=== PATIENT | male | born 1990 | race Caucasian/White ===

== ENCOUNTER 2018-01-31 06:13 | Emergency (ER) | payer BC ==
[2018-01-31 06:20] VITALS: BP 159/102; PULSE 87; RESP 18; TEMP 98.2
[2018-01-31] MEDS ORDERED: LIDOCAINE 1% INJ 10MG/ML (20 ML MDV) SQ ONE (06:30)
[2018-01-31] MEDS ORDERED: BUPIVACAINE (PF) 0.5% 30 ML VIAL SQ STA (06:30)
[2018-01-31] MEDS ORDERED: DIPH,PERTUS(ACELL)TETVAC-LF 0.5 ML VIAL IM ONE (06:35)
[2018-01-31] MEDS ORDERED: BUPIVACAINE (PF) 0.75% 10 ML VIAL SQ STA (06:37)
--- NOTE | 2018-01-31 06:39 | ED ---
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 Patient reports that last week he had a small superficial injury to the skin on his left thumb, patient was evaluated and prescribed Keflex which he reports he has been taking. Patient reports that over the past 2-3 days the swelling is become progressively worse and he has noticed the skin on the tip of his left thumb is become black. He reports he feels as though there is a water balloon a fluid within his thumb as well as worsening pain. - Related Data Home Medications Medication Instructions Recorded Confirmed Ibuprofen [Motrin Ib] 400 mg PO Q6H PRN 01/31/18 01/31/18 Allergies Allergy/AdvReac Type Severity Reaction Status Date / Time No Known Allergies Allergy Verified 01/31/18 07:38 Review of Systems ROS Statement: Those systems with pertinent positive or pertinent negative responses have been documented in the HPI. ROS Other: All systems not noted in ROS Statement are negative. Past Medical History Past Medical History: No Reported History History of Any Multi-Drug Resistant Organisms: None Reported Past Surgical History: No Surgical Hx Reported Past Psychological History: No Psychological Hx Reported Smoking Status: Never smoker Past Alcohol Use History: Occasional Past Drug Use History: None Reported General Exam - General Exam Comments Initial Comments: Physical Exam GENERAL: Patient is well-developed and well-nourished. Patient is nontoxic and well- hydrated and is in no distress. HENT: Normocephalic, Atraumatic. EYES: PERRL, EOMI PULMONARY: Unlabored respirations. No audible rales rhonchi or wheezing was noted. CARDIOVASCULAR: There is a regular rate and rhythm without any murmurs gallops or rubs. ABDOMEN: Soft and nontender with normal bowel sounds. SKIN: Left thumb erythematous, pad is fluctuant : Deferred NEUROLOGIC: Patient is alert and oriented x3. Moving all extremities spontaneously MUSCULOSKELETAL: Normal extremities with adequate strength and full range of motion. No lower extremity swelling or edema. No calf tenderness. PSYCHIATRIC: Normal psychiatric evaluation. Limitations: no limitations Limitations: no limitations Course Vital Signs 01/31/18 06:17 Temperature 98.2 F Pulse Rate 87 Respiratory 18 Rate Blood Pressure 159/102 O2 Sat by Pulse 98 Oximetry Procedures - Incision & Drainage Consent Obtained: verbal consent Time Out Performed?: Yes Site: hand Anesthetic Used: lidocaine 1% I&D Cleaning Method: Chloroprep Sterile Field Used?: Yes Scalpel Used: #11 Needle Aspiration Performed?: No Irrigation Performed?: No I&D Drainage Obtained: Pus, Blood Packing: Plain Culture Obtained?: No Patient Tolerated Procedure: well, no complications - Nerve Block Consent Obtained: verbal consent Time Out Performed: Yes Local Anesthetic Used: Lidocaine 1% Side: left Nerve Blocks: digital Procedure Successful: No Complications: none, bleeding Patient Tolerated Procedure: well, no complications Medical Decision Making - Medical Decision Making Patient was seen and evaluated history was obtained from the patient and signed physical exam is consistent with a felon of the left thumb Digital block was performed, felon was I&D, approximately 4 mL of purulent dark bloody material was expressed, the thumb was packed patient tolerated procedure well. Patient was advised to contact hand surgeon for follow-up. Patient advised to continue his by mouth Keflex. All questions pertaining care were answered return parameters were discussed, sinus symptoms of flexor tenosynovitis were discussed. Worsening infection and other indications for return were discussed. Patient was discharged home in stable condition. Disposition Clinical Impression: Felon of finger of left hand Disposition: HOME SELF-CARE Instructions: Abscess Incision and Drainage (ED) Is patient prescribed a controlled substance at d/c from ED?: No Referrals: None,Stated [Primary Care Provider] - 1-2 days Anthony Millan DO [Doctor of Osteopathic Medicine] - 1-2 days Time of Disposition: 07:43
== END 2018-01-31 07:50 | disposition home or self-care (01) ==
LOC: EC 06:13
DX: L03.012 Cellulitis of left finger (principal); Z23 Encounter for immunization
CPT/HCPCS: 90715; 99283; 26010; 90471; J2001